=== PATIENT | female | born 1970 | race Caucasian/White ===

== ENCOUNTER 2018-10-13 23:07 | Inpatient (IN) | payer MEDICAID ==
[~2018-10-13] VITALS: Ht 152.4 cm; Wt 61.7 kg
--- NOTE | 2018-10-13 23:27 | NUR ---
PT [facility] FOR SYNCOPAL EPISODE. FOUND ALTERED ON FLOOR IN LIVING ROOM BY FAMILY. UNKNOWN TRAUMA. STATES +CP, +SOB. BS 96. AFEBRILE. HYPOTENSIVE ON SCENE. PT ON MONITOR IN BED 3. NAD NOTED. RESP EVEN AND UNLABORED. WILL CONTINUE TO MONITOR.
--- NOTE | 2018-10-13 23:29 | NUR ---
PHLEB AT BEDSIDE FOR LAB DRAW
[2018-10-13] MEDS ORDERED: ONDANSETRON HCL/PF 4 MG/2 ML VIAL IVP ONE (23:30)
[2018-10-13] MEDS ORDERED: IV NS 0.9% 1,000 ML BAG IV ONE (23:30)
[2018-10-13] MEDS ORDERED: ONDANSETRON HCL/PF 4 MG/2 ML VIAL ONE (23:31)
[2018-10-13 23:38] LABS: BASOPHILS # (AUTO) 0.1 /CMM (0.0-0.2); BASOPHILS % (AUTO) 0.9 % (0.0-2.0); EOSINOPHILS % (AUTO) 1.8 % (0.0-6.0); HEMATOCRIT 39 % (33-45); HEMOGLOBIN 13.1 g/dL (11.5-14.8); LYMPHOCYTES # (AUTO) 3.1 /CMM (0.8-4.8); LYMPHOCYTES % (AUTO) 42.6 % (20.0-44.0); MEAN CORPUSCULAR HGB CONC 33 g/dl (31.0-36.0); MEAN CORPUSCULAR VOLUME 83 fL (82-100); MONOCYTES # (AUTO) 0.6 /CMM (0.1-1.30); MONOCYTES % (AUTO) 8.7 % (2.0-12.0); NEUTROPHILS # (AUTO) 3.3 /CMM (1.8-8.9); PLATELET COUNT (AUTO) 248 /CMM (150-450); RED BLOOD CELL COUNT(AUTO) 4.78 MIL/uL (4.0-5.2); WHITE BLOOD COUNT (AUTO) 7.3 K/uL (4.3-11.0)
--- NOTE | 2018-10-13 23:45 | NUR ---
TECH AT BEDSIDE FOR EKG
[2018-10-13 23:52] LABS: CALCIUM, SERUM 8.9 mg/dL (8.5-10.1); CARBON DIOXIDE 23 mmol/L (21-32); CHLORIDE 108 mmol/L (98-107); CREATININE 0.8 mg/dL (0.6-1.3); GLUCOSE 127 mg/dL (74-106); POTASSIUM 3.1 mmol/L (3.5-5.1); SODIUM SERUM 140 mmol/L (136-145); UREA NITROGEN, BLOOD 16 mg/dL (7-18)
[2018-10-13 23:57] LABS: ALANINE AMINOTRANSFERASE 27 U/L (12-78); ALBUMIN 3.3 g/dL (3.4-5.0); ALKALINE PHOSPHATASE 125 U/L (46-116); ASPARTATE AMINOTRANSFERASE 20 U/L (15-37); BILIRUBIN,TOTAL 0.1 mg/dL (0.2-1.0); TOTAL PROTEIN, SERUM 6.8 g/dL (6.4-8.2)
[2018-10-14] VITALS (8 sets, daily range): BP systolic 84–122; BP diastolic 50–75
--- NOTE | 2018-10-14 00:01 | NUR ---
SON AT BEDSIDE
--- NOTE | 2018-10-14 00:31 | NUR ---
PT TAKEN TO RADIOLOGY VIA WHEELCHAIR
[2018-10-14] MEDS ORDERED: POTASSIUM CHLORIDE 20 MEQ TAB.PRT.SR PO ONE ×3 (01:00→01:09)
[2018-10-14] MEDS ORDERED: ONDANSETRON HCL/PF 4 MG/2 ML VIAL IVP PRN (02:00)
[2018-10-14] MEDS ORDERED: ACETAMINOPHEN 325 MG TABLET PO PRN (02:00)
[2018-10-14] MEDS ORDERED: HYDROCODONE/APAP 5/325MG 1 EACH TABLET PO PRN (02:00)
[2018-10-14] MEDS ORDERED: MAGNESIUM HYDROXIDE 30 ML UDC PO PRN (02:00)
[2018-10-14] MEDS ORDERED: NITROGLYCERIN 0.4 MG/TAB BOTTLE SL PRN (02:00)
[2018-10-14] MEDS ORDERED: MAG HYDROX/AL HYDROX/SIMETH 30 ML UDC PO PRN (02:00)
[2018-10-14] MEDS ORDERED: ASPIRIN 325 MG TABLET PO ONE (02:00)
[2018-10-14] MEDS ORDERED: MORPHINE SULFATE INJ 4 MG/ML DISP.SYRIN IV PRN (02:00)
[2018-10-14] MEDS ORDERED: IV NS 0.9% 1,000 ML IV PRN (02:30)
[2018-10-14] MEDS ORDERED: ASPIRIN 325 MG TABLET ONE (02:33)
--- NOTE | 2018-10-14 02:35 | NUR ---
REPORT GIVEN TO RAMÍREZ YO FOR RAVINDER
--- NOTE | 2018-10-14 03:05 | NUR ---
NATIONAL SALES OPENING/ ADMITTING NOTES RECEIVED PATIENT FROM ER [place]IA [place], SAFELY AMBULATED TO BED, STABLE WHEN WALKING, PATIENT IS ALERT AND ORIENTED X 4, ABLE TO VERBALIZE NEEDS, RESPIRATIONS EVEN AND UNLABORED WITH EQUAL RISE AND FALL OF CHEST, DENIES ANY PAIN AT THIS JUST STATES " BURNING SENSATION, HAD ON AND OFF FOR DAYS, I PLACE ICE." PATIENT OFFERED AND MADE AWARE IF PAIN MEDICATION IS NEEDED MEDICATION IS AVAILABLE FOR CHEST PAIN AND PAIN , PER PATIENT NO MEDICATION NEEDED AT THIS TIME. VERBALIZE SHE UNDERSTANDS. PRIMARILY AMHARIC SPEAKING BUT ALSO UNDERSTANDS AND SPEAK MALAYSIAN. IV SITE TO RIGHT HAND #18 G INTACT AND PATENT, NO REDNESS, NO INFILTRATION PRESENT, PER PATIENT NO PAST MEDICAL HISTORY NO MEDS TAKEN AT HOME, ORIENTED TO STAFF AND CALL LIGHT AND KEPT WITHIN REACH, BELONGINGS LIST DONE, SAFETY PRECAUTIONS IN PLACE, BED ALARM PLACED FOR SAFETY,LOW BED AND LOCKED, DENIES ANY FEELING OF SOB, ALL NEEDS ATTENDED, REMAINS COMFORTABLE AT THIS TIME,WILL CARRY OUT MD ORDERS AND CONTINUE TO MONITOR AND ATTEND TO NEEDS, PLACED ON DISHING MACHINE OPERATOR SR 76.
--- NOTE | 2018-10-14 06:43 | NUR ---
SUPERVISOR BRAKE REPAIR CLOSING NOTES PATIENT CURRENTLY IN BED, SLEEPING BUT EASILY AROUSABLE, RESPIRATIONS EVEN AND UNLABORED WITH EQUAL RISE AND FALL AND CHEST, APPEARS COMFORTABLE , NO COMPLAIN OF PAIN AT THIS TIME, NO CHEST PAIN AT THIS TIME, IV SITE TO RIGHT HAND #18G INTACT AND PATENT, NO REDNESS, NO INFILTRATION PRESENT, IVF RUNNING ORDERED. SAFETY PRECAUTIONS IN PLACE, LOW BED AND LOCKED BED ALARM IN PLACE, CALL LIGHT KEPT WITHIN REACH TOILETING OFFERED, NO CHANGE FROM ADMISSION, ALL NEEDS ATTENDED AT THIS TIME, WILL CONTINUE TO MONITOR AND ENDORSE TO NEXT SHIFT.
[2018-10-14] MEDS ORDERED: PANTOPRAZOLE 40 MG TABLET.DR PO SCH (07:30)
[2018-10-14 07:41] LABS: CALCIUM, SERUM 8.1 mg/dL (8.5-10.1); CARBON DIOXIDE 23 mmol/L (21-32); CHLORIDE 113 mmol/L (98-107); CREATININE 0.7 mg/dL (0.6-1.3); GLUCOSE 99 mg/dL (74-106); MAGNESIUM 2.1 mg/dL (1.8-2.4); SODIUM SERUM 145 mmol/L (136-145); UREA NITROGEN, BLOOD 14 mg/dL (7-18)
--- NOTE | 2018-10-14 07:45 | NUR ---
COOK VEGETABLE OPENING NOTE RECEIVED PATIENT IN BED. SLEEPING EASILY AROUSED WITH VERBAL STIMULI. ORIENTED X4. ON ROOM AIR TOLERATING WELL. IN NO APPARENT DISTRESS OR DISCOMFORT AT THIS TIME. RESPIRATIONS EVEN AND UNLABORED. DENIES PAIN AND SOB. PATIENT IS ABLE TO COMMUNICATE NEEDS. ON TELE MONITORING AND SR AT THIS TIME. NPO FOR PENDING CARDIAC CONSULT. RIGHT HAND 18G IVC WITH FLUIDS RUNNING AT 75ML/HR. PATIENT KEPT CLEAN AND COMFORTABLE. ALL NEEDS ATTENDED, SAFETY MEASURES IN PLACE, BED IN LOW LOCKED POSITION, SIDE RAILS UP X2, CALL LIGHT WITHIN EASY REACH. WILL CONTINUE TO MONITOR.
[2018-10-14] MEDS ORDERED: ASPIRIN 81 MG TAB.CHEW PO SCH (09:00)
[2018-10-14] MEDS ORDERED: HYDROMORPHONE INJ 0.5 MG/0.5 ML SYRINGE IV PRN (15:00)
--- NOTE | 2018-10-14 15:44 | NUR ---
Social service consult requested by SUYAPA Douglas for Advance Directives information and payment plan. Pt. is a 48 year old male who was admitted to [facility] for syncope and chest pain. SW met with pt. bedside. Pt. is alert and oriented x 4. Pt. is Gibraltarian speaking and unit coordinator Yvette assisted SW with translation. SW educated pt on Advance Directives and gave her the form in Gibraltarian. SW also inquired regarding payment plan question that she had. Pt. stated that Rajni, the insurance liaison already came and spoke with her and has applied for [employer]. No other social service needs are requested at this time.
--- NOTE | 2018-10-14 16:00 | NUR ---
PATIENT AMBULATED AROUND THE UNIT WITH THE COMPANY OF [employer]. PATIENT REPORTS NO DIZZINESS OR WEAKNESS AT THIS TIME. REPORTED TO KANDY NIETO NP. WILL RANJIT OUT FURTHER ORDERS.
[2018-10-14] MEDS ORDERED: ASPI-1169 PO (17:47)
[2018-10-14] MEDS ORDERED: hydrALAZINE HCL 25 MG TABLET PO ONE (19:00)
--- NOTE | 2018-10-14 19:13 | NUR ---
MS FIREARMS MODEL MAKER NOTE RECEIVED ORDER FOR DISCHARGE FROM KANDY NIETO NP. PATIENT IS BEING DISCHARGED HOME. PATIENT IS STABLE, VITAL SIGNS STABLE, ALERT ORIENTED X4. IN NO APPARENT DISTRESS OR DISCOMFORT, RESPIRATIONS EVEN AND UNLABORED. DENIES DIZZINESS AT THIS TIME. DISCHARGE PAPERWORK PREPARED VIA [employer]. REVIEWED AND DISCUSSED WITH PATIENT AND HER . INSTRUCTIONS GIVEN REGARDING FOLLOW UP CARE, PHYSICIAN INSTRUCTIONS, MEDICATIONS. PATIENT VERBALIZED UNDERSTANDING OF ALL THE INSTRUCTIONS. VALUABLES FORM REVIEWED AND ACCOUNTED FOR. ALL FORMED SIGNED COPIED MADE PLACED IN CHART. PATIENT'S SKIN ASSESSED, NO IMPAIRMENTS NOTED AT THIS TIME, SKIN IS INTACT. PATIENT REFUSED FLU VACCINE OFFERED PRIOR TO DISCHARGE STATING SHE DOES NOT WANT TO BE VACCINATED, RISKS AND BENEFITS EXPLAINED. IV SITES DISCONTINUED FROM LEFT HAND, TIP INTACT. ID BAND REMOVED. PATIENT LEFT THE UNIT ON A WHEELCHAIR, ACCOMPANIED BY JOSE PALOMARES AND FAMILY AT 1900.
== END 2018-10-14 18:50 | disposition home or self-care (01) | DRG 48 ==
LOC: ER 23:09 → TELE 10-14 01:38 → MED 10-14 09:18
PROVIDERS: ADMIT Nurse Practitioner Acute Care; ATTEND Nurse Practitioner Acute Care
DX: G90.8 Other disorders of autonomic nervous system (principal); E44.1 Mild protein-calorie malnutrition; E66.9 Obesity, unspecified; E87.6 Hypokalemia; Z68.26 Body mass index [BMI] 26.0-26.9, adult
CPT/HCPCS: 36415; 70450-TC; 71045-TC; 80048-TC; 80076-TC; 82962-TC; 83735-TC; 84484-TC; 85025-TC; 85730-TC; 86850-TC; 87081-TC; 93307-TC; G0378; J2405; J7030